=== PATIENT | male | born 1965 | race Caucasian/White ===

== ENCOUNTER 2016-10-16 14:49 | Emergency (ER) | payer MEDICAID ==
[2016-10-16 15:11] VITALS: RESP 18
--- NOTE | 2016-10-16 15:41 | EDPHY ---
H & P Time Seen by Provider: 10/16/16 14:59 HPI/ROS: Chief complaint. Post operative incision drainage HPI. 50-year-old male presents emergency department with drainage from incision is right hip. The patient had a total hip replacement 3 days ago in [place]. He was discharged home yesterday. Last evening he noted that the dressing was saturated with blood. He went to [facility] Emergency Department where the dressing was changed but no further investigation. Today it continues bleeding and saturating the bandage that was placed last night. He also complains of some swelling to his thigh and knee. Increased pain to this area with standing and bending his knee. No fever. No chest discomfort no shortness of breath. ROS Constitutional. no fever/chills, no weakness Eyes. no problems with vision ENT. no sore throat, no nasal drainage Cardiovascular. no chest pain Respiratory. no shortness of breath, no cough Abdominal. no abdominal pain, no nausea/vomiting, no diarrhea . no problems urinating MS. Right thigh and knee swelling. Skin. Surgical incision draining Lymph. no swollen glands Neuro. no headache, no dizziness, no difficulty walking or with speech Past Medical/Surgical History: Previous left hip replacement; hypertension Social History: Single, nonsmoker, no alcohol Physical Exam: General Appearance: Alert well-developed male mild distress vital signs are stable. Temp 38.3degrees Eyes: Pupils equal and round no pallor or injection. ENT, Mouth: Mucous membranes are moist. Respiratory: There are no retractions, lungs are clear to auscultation. Cardiovascular: Regular rate and rhythm. Gastrointestinal: Abdomen is soft and nontender, no masses, bowel sounds normal. Neurological: Awake and alert, sensory and motor exams grossly normal. Skin: Incision is intact. It is not erythematous. It is draining slight serous sanguinous fluid through the incision line. Musculoskeletal: Neck is supple nontender. Extremities right thigh and knee are slightly swollen Psychiatric: Patient is oriented X 3, there is no agitation. Constitutional: Initial Vital Signs Heart Rate 94 10/16/16 15:10 Respiratory Rate 18 10/16/16 15:10 Blood Pressure 176/101 H 10/16/16 15:10 O2 Sat (%) 96 10/16/16 15:10 O2 Delivery Mode Room Air Allergies/Adverse Reactions: lisinopril Allergy (Verified 10/16/16 14:56) valsartan [From Diovan] Allergy (Verified 10/16/16 14:56) Home Medications: Medication Instructions Recorded Allopurinol 10/16/16 Clonidine 10/16/16 Losartan Potassium 10/16/16 Metroplol 10/16/16 [place] 10-325 Tablet 10/16/16 Medical Decision Making - Diagnostics Imaging Results: Imaging Impressions Extremity Venous Study 10/16/16 15:22 Impression: 1. No deep venous thrombosis in the right lower extremity. 2. Complex collection underlying the right lower extremity incision mid thigh most likely representing postoperative hematoma. Clinical correlation is recommended to rule out possible abscess. Findings discussed with Reinier Gallo M.D. at 16:50 hour, 10/16/2016. Ultrasound reviewed by me and discussed with Dr. Noonan shows a loculated fluid collection either hematoma or seroma measuring 15 x 2 x 3 to 5 cm underneath the incision. There is no evidence for DVT ED Course/Re-evaluation: I consulted and discussed case with Dr. Gilbert, partner of patient's orthopedic surgeon, in [place]. He recommends re-emphasized Ng wound care and decreased activity. He would like to see the patient in the office on Wednesday. We discussed that the patient had of low-grade fever of 101 degrees but no evidence for infection. He agrees with no antibiotics at this point time. The patient and I discussed imaging study results, treatment plan including criteria for return and importance of follow-up. Expresses understanding and agreement Differential Diagnosis: I considered DVT, cellulitis, postoperative hematoma - Data Points Medications Given: Discontinued Medications Acetaminophen (Tylenol 160mg/5ml Oral Liquid) 1,000 mg PO EDNOW ONE Stop: 10/16/16 15:49 Last Admin: 10/16/16 15:54 Dose: Not Given Departure - Departure Disposition: Home, Routine, Self-Care Clinical Impression: Postoperative hematoma Qualifiers: Surgical complication system/body Area: musculoskeletal system Condition: Good Instructions: Hematoma (ED) Additional Instructions: Keep leg elevated as much as possible. Decrease your activity. Ice to hip next 24-48 hours. Clean the incision area and surrounding skin daily with have hydrogen peroxide and half water. Then placed fresh clean bandage. They would like to see you in the office on Wednesday. Call for an appointment if you do not have one. Return over the weekend for worsening pain, redness, swelling, fever. Referrals: Roscoe Edgar MD [Primary Care Provider] - As per Instructions
[2016-10-16] MEDS ORDERED: ACETAMINOPHEN 160 MG/5 ML UDCUP PO ONE (15:48)
[2016-10-16] MEDS ORDERED: ACETAMINOPHEN 500 MG TAB ONE (15:51)
[2016-10-16 17:08] VITALS: O2SAT 97
[2016-10-16 17:50] VITALS: BP 145/66; PULSE 85; TEMP 99
== END 2016-10-16 17:49 | disposition home or self-care (01) ==
LOC: CED 14:49
DX: M96.830 Postprocedural hemorrhage of a musculoskeletal structure following a musculoskeletal system procedure (principal); I10 Essential (primary) hypertension; Z96.642 Presence of left artificial hip joint
CPT/HCPCS: 93971-PO